=== PATIENT | male | born 1950 | race Caucasian/White ===

== ENCOUNTER 2017-11-30 14:14 | Outpatient (CLI) | payer MEDICARE, BC ==
[~2017-11-30] VITALS: Ht 193 cm; Wt 86.2 kg
[2017-11-30 14:15] VITALS: BP 131/72
[2017-11-30] MEDS ORDERED: NORVASC5 MG ORAL (15:26)
--- NOTE | 2017-11-30 15:29 | GI Initial Consult Note ---
History of Present Illness General Date patient seen: November 30, 2017 Time patient seen: 15:23 Referring physician: None Reason for Consultation: BOWEL INCONTINENCE Present Illness HPI 67 year old male patient presents today with c/o of severe bowel incontinence. States he would uncontrollable urges and episodes of diarrhea for the past few months. At times he noticed black stools. Had recent colonoscopy back in Mar 2017 with one small polyp. Patient states he maintains a high fiber diet with plenty of fruits and vegetables. Also currently on 2 weeks of antibiotics for UTI. No signs of abuse or neglect. Patient is not fall risk. Denies any unintentional weight loss or changes in dietary habits. Home Meds Reported Medications Amlodipine Besylate (Norvasc) 5 Mg Tablet, 5 MG ORAL DAILY, TAB 11/30/17 Allergies: Coded Allergies: No Known Allergies (Unverified , 11/30/17) Patient History History Provided By: Patient PMH Narrative HTN Past Surgical History: Prostate Surgery scheduled Apr 2018. Hip Fracture Social History: Denies: smoking, alcohol use, drug use, other Review of Systems All Other Systems: negative except mentioned in HPI Physical Exam T 98.3 BP 131/72 P 74 97 RA HT 5'4 WT 190.6 lbs Sp02 EP Interpretation: reviewed, normal General Appearance: well appearing, no apparent distress, alert Head: normocephalic EENT: PERRL/EOMI, normal ENT inspection Neck: supple Respiratory: normal breath sounds, no respiratory distress Cardiovascular: normal rate Gastrointestinal: normal inspection, non tender, soft, normal bowel sounds, non -distended Rectal: deferred Genitourinary: deferred Musculoskeletal: normal inspection, back normal Neurologic: normal inspection, alert, oriented x3, responsive Psychiatric: normal inspection, judgement/insight normal, memory normal Skin: normal inspection, normal color, no rash, warm/dry, palpation normal, well hydrated Lymphatic: normal inspection, no adenopathy GI: Plan Problems: (1) Diarrhea (2) Rectal disorder (3) Constipation (4) Incontinence of bowel Plan possible rectal dysfunction >> sent to [facility] for anal manometry change to low fiber diet RTC after procedure The patient was seen and examined at bedside and all new and available data was reviewed in the patients chart. I agree with the above findings, impression and plan. (Patient seen earlier today. Signature stamp does not reflect patient encounter time.). - [facility] November 30, 2017 15:29
== END 2017-11-30 14:45 | disposition home or self-care (01) ==
LOC: PAN 14:14
DX: R19.7 Diarrhea, unspecified (principal); K59.00 Constipation, unspecified; R15.9 Full incontinence of feces; I10 Essential (primary) hypertension
CPT/HCPCS: 99202

== ENCOUNTER 2018-02-11 14:31 | Outpatient (CLI) | payer MEDICARE, BC ==
[~2018-02-11 14:31] MED LIST: NORVASC5 MG ORAL
--- NOTE | 2018-02-11 15:45 | GI Progress Note ---
Assessment/Plan Problems: (1) Rectal disorder ICD Codes: K62.9 - Disease of anus and rectum, unspecified SNOMED: 0519041 (2) Incontinence of bowel ICD Codes: R15.9 - Full incontinence of feces SNOMED: 27126975 (3) Diarrhea ICD Codes: R19.7 - Diarrhea, unspecified SNOMED: 16335018 (4) Constipation ICD Codes: K59.00 - Constipation, unspecified SNOMED: 36116293 Status: stable Status Narrative Seen with Dr. Toledo. Assessment/Plan anal rectal manometry reviewed with patient >> unremarkable findings RTC prn The patient was seen and examined at bedside and all new and available data was reviewed in the patients chart. I agree with the above findings, impression and plan. (Patient seen earlier today. Signature stamp does not reflect patient encounter time.). - Mauricio Toledo MD Subjective Gastrointestinal/Abdominal: Reports: no symptoms Objective 141/62 General Appearance: WD/WN, no apparent distress, alert Cardiovascular: normal rate Respiratory/Chest: normal breath sounds, no respiratory distress Abdominal Exam: normal bowel sounds, non tender, soft Extremities: normal range of motion, non-tender Bethany Mi NP Feb 11, 2018 15:45
== END 2018-02-11 15:05 | disposition home or self-care (01) ==
LOC: PAN 14:31
DX: K62.9 Disease of anus and rectum, unspecified (principal); R15.9 Full incontinence of feces; R19.7 Diarrhea, unspecified; K59.00 Constipation, unspecified
CPT/HCPCS: 99213